=== PATIENT | female | born 1965 | race Caucasian/White ===

== ENCOUNTER → 2017-04-09 | Outpatient (CLI) | payer OTHER | END | disposition home or self-care (01) | LOC: RAD 12:07 → LAB 12:07 → RAD 13:00 → MAMMO 13:30 | DX: Z12.31 Encounter for screening mammogram for malignant neoplasm of breast (principal); Z13.820 Encounter for screening for osteoporosis; M54.41 Lumbago with sciatica, right side; M54.42 Lumbago with sciatica, left side; F17.200 Nicotine dependence, unspecified, uncomplicated; Z78.0 Asymptomatic menopausal state ==

== ENCOUNTER 2022-05-23 08:34 | Emergency (ER) | payer SELFPAY ==
[~2022-05-23] VITALS: Wt 65.8 kg
[2022-05-23 09:24] LABS: BASO # 0.1 10*3/uL (0.0-0.1); EOS # 0.1 10*3/uL (0.0-0.4); EOS % 0.9 % (1.0-4.0); HEMATOCRIT 47.7 % (37.0-47.0); LYMPH # 1.6 10*3/uL (1.3-4.4); LYMPH % 23.2 % (27.0-41.0); MEAN CELL VOLUME 93.2 fl (81.0-99.0); MEAN CORPUSCULAR HGB 30.5 pg (27.0-31.0); MEAN CORPUSCULAR HGB CONC 32.7 g/dl (33.0-37.0); MEAN PLATELET VOLUME 9.7 fl (9.6-12.3); MONO # 0.4 10*3/uL (0.1-1.0); MONO % 6.2 % (3.0-9.0); NEUT # 4.8 10*3/uL (2.3-7.9); NEUT % 68.4 % (47.0-73.0); PLATELET COUNT AUTOMATED 307 10*3/uL (130-400); RED BLOOD COUNT 5.12 10*6/uL (4.10-5.10); RED CELL DISTRI WIDTH 13.8 % (0-14.5); WHITE BLOOD COUNT 6.9 10*3/uL (4.8-10.8)
[2022-05-23 09:39] LABS: ALKALINE PHOSPHATASE 98 U/L (46-116); BUN 9 mg/dl (9-23); CHLORIDE 106 mmol/L (98-107); POTASSIUM 4.1 mmol/L (3.4-5.1); SGPT/ALT 13 U/L (10-49); TOTAL PROTEIN 7.4 gm/dL (6.0-8.0)
== END 2022-05-23 14:00 | disposition short-term general hospital (02) ==
LOC: ED 08:34
PROVIDERS: Emergency Medicine
DX: R42 Dizziness and giddiness (principal); R00.1 Bradycardia, unspecified; Z88.1 Allergy status to other antibiotic agents; Z88.8 Allergy status to other drugs, medicaments and biological substances; Z91.040 Latex allergy status

== ENCOUNTER 2023-09-19 15:16 | Emergency (ER) | payer OTHER ==
[~2023-09-19] VITALS: Ht 157.4 cm; Wt 60.3 kg
[2023-09-19 16:13] LABS: BASO % 0.1 % (0.0-1.0); EOS % 0.6 % (1.0-4.0); HEMATOCRIT 35.4 % (37.0-47.0); LYMPH # 0.6 10*3/uL (1.3-4.4); LYMPH % 9.1 % (27.0-41.0); MEAN CELL VOLUME 101.1 fl (81.0-99.0); MEAN CORPUSCULAR HGB 33.1 pg (27.0-31.0); MEAN CORPUSCULAR HGB CONC 32.8 g/dl (33.0-37.0); MEAN PLATELET VOLUME 8.9 fl (9.6-12.3); MONO # 0.6 10*3/uL (0.1-1.0); MONO % 9.1 % (3.0-9.0); NEUT # 5.5 10*3/uL (2.3-7.9); NEUT % 80.7 % (47.0-73.0); PLATELET COUNT AUTOMATED 270 10*3/uL (130-400); RED CELL DISTRI WIDTH 16.4 % (0-14.5); WHITE BLOOD COUNT 6.8 10*3/uL (4.8-10.8)
[2023-09-19] MEDS ORDERED: SODIUM CHLORIDE 0.9% 100 ML BAG IV ONE (16:25)
[2023-09-19] MEDS ORDERED: IOHEXOL 350 MG/ML 100 ML VIAL IV ONE (16:25)
[2023-09-19 16:34] LABS: BUN 6 mg/dl (9-23); CHLORIDE 104 mmol/L (98-107); POTASSIUM 3.9 mmol/L (3.4-5.1)
[2023-09-19] MEDS ORDERED: VIBRAMYCIN100 MG PO (20:19)
[2023-09-19] MEDS ORDERED: AMOX-CLAV 875-1 EACH PO (20:19)
[2023-09-19] MEDS ORDERED: Ceftriaxone Sodium 1 GM/10 ML SYR IV ONE (20:20)
== END 2023-09-19 20:54 | disposition home or self-care (01) ==
LOC: ED 15:16
PROVIDERS: Physician Assistant Medical
DX: J18.9 Pneumonia, unspecified organism (principal); Z88.8 Allergy status to other drugs, medicaments and biological substances; Z91.041 Radiographic dye allergy status; Z87.891 Personal history of nicotine dependence

== ENCOUNTER 2023-12-24 13:20 | Emergency (ER) | payer OTHER ==
[~2023-12-24] VITALS: Ht 165.1 cm; Wt 64.6 kg
[~2023-12-24 13:20] MED LIST: AMOX-CLAV 875-1 EACH PO; VIBRAMYCIN100 MG PO
[2023-12-24] MEDS ORDERED: DEXAMETHASONE4 MG PO (13:43)
[2023-12-24 14:30] LABS: BASO % 0.1 % (0.0-1.0); HEMATOCRIT 38.3 % (37.0-47.0); LYMPH # 0.7 10*3/uL (1.3-4.4); LYMPH % 9.9 % (27.0-41.0); MEAN CELL VOLUME 101.3 fl (81.0-99.0); MEAN CORPUSCULAR HGB 34.1 pg (27.0-31.0); MEAN CORPUSCULAR HGB CONC 33.7 g/dl (33.0-37.0); MEAN PLATELET VOLUME 8.6 fl (9.6-12.3); MONO # 0.5 10*3/uL (0.1-1.0); MONO % 7.1 % (3.0-9.0); NEUT # 5.8 10*3/uL (2.3-7.9); NEUT % 81.9 % (47.0-73.0); NUCLEATED RED BLOOD CELL 0.3 % (0.0-0.0); PLATELET COUNT AUTOMATED 160 10*3/uL (130-400); RED BLOOD COUNT 3.78 10*6/uL (4.10-5.10); RED CELL DISTRI WIDTH 17.3 % (0-14.5); WHITE BLOOD COUNT 7.1 10*3/uL (4.8-10.8)
[2023-12-24 14:50] LABS: BUN 12 mg/dl (9-23); CHLORIDE 95 mmol/L (98-107); POTASSIUM 3.5 mmol/L (3.4-5.1)
[2023-12-24 16:03] LABS: BILIRUBIN Negative (Negative); BLOOD Negative (Negative); CLARITY Clear (Clear); COLOR Yellow (Yellow); GLUCOSE Negative (Negative); KETONE Negative (Negative); LEUKO ESTERASE Negative (Negative); NITRITE Negative (Negative); SPECIFIC GRAVITY 1.015 (1.001-1.030); UROBILINOGEN 0.2 E.U./dl (0.0-1.0)
[2023-12-24 16:20] LABS: BACTERIA TRACE; RBC 0-2 rbc/hpf (0-2); WBC 0-2 wbc/hpf (0-5)
== END 2023-12-24 20:34 | disposition hospice, home (50) ==
LOC: ED 13:20
PROVIDERS: Internal Medicine
DX: C79.31 Secondary malignant neoplasm of brain (principal); E87.1 Hypo-osmolality and hyponatremia; D75.89 Other specified diseases of blood and blood-forming organs; F17.200 Nicotine dependence, unspecified, uncomplicated; Z88.8 Allergy status to other drugs, medicaments and biological substances